=== PATIENT | female | born 1990 ===

== ENCOUNTER 2019-07-13 05:30 | Day surgery (SDC) | payer OTHER ==
[~2019-07-13 05:30] MED LIST: FIORINAL 50-321 EACH PO
[2019-07-13] MEDS ORDERED: PERCOCET 5-3251 EACH PO (10:02)
== END 2019-07-13 14:30 | disposition home or self-care (01) ==
LOC: CIR.AMB 05:30
DX: R10.2 Pelvic and perineal pain (principal)

== ENCOUNTER 2019-07-27 22:25 | Emergency (ER) | payer OTHER ==
[~2019-07-27] VITALS: Ht 162.6 cm; Wt 59.0 kg
[~2019-07-27 22:25] MED LIST changes: +PERCOCET 5-3251 EACH PO
[2019-07-28] MEDS ORDERED: PEPCID AC20 MG PO (06:58)
== END 2019-07-28 08:01 | disposition home or self-care (01) ==
LOC: ER 22:25
DX: K29.60 Other gastritis without bleeding (principal)